=== PATIENT | male | born 1970 | race African-American/Black ===

== ENCOUNTER 2019-03-18 12:56 | Emergency (ER) | payer OTHER ==
[~2019-03-18] VITALS: Ht 182.9 cm; Wt 116.6 kg
--- NOTE | 2019-03-18 14:12 | NUR ---
US CALLED FOR TESTICULAR EXAM
[2019-03-18] MEDS ORDERED: HYDROCODONE/APAP 10MG-325MG TAB PO ONE (14:30)
[2019-03-18] MEDS ORDERED: SODIUM CHLORIDE 0.9% 1000ML 1,000 ML IV SCH (14:31)
[2019-03-18] MEDS ORDERED: ASPIRIN 81 MG CHEW TAB PO ONE (14:45)
[2019-03-18] MEDS ORDERED: LEVOFLOXACIN 750MG/D5W 150ML IV SCH (14:45)
[2019-03-18] MEDS ORDERED: ALBUTEROL SULF 0.083% NEB SOLN 3 ML NEB NEB SCH (14:45)
--- NOTE | 2019-03-18 15:31 | NUR ---
US AT BEDSIDE.
--- NOTE | 2019-03-18 16:13 | Diagnostic Imaging Report ---
Testicular ultrasound, with Doppler examination. History: Left testicular pain. Comparison: <None available>. Discussion: Evaluation of the scrotum was performed in the transverse and longitudinal planes. Color Doppler and spectral wave form analysis was performed bilaterally. The testes are normal in size and echogenicity bilaterally, measuring 4.5 x 3.2 x 3.1 cm on the right and 4.6 x 3.3 x 2.8 cm on the left. There is no evidence of a mass. There is increased vascularity to both testes. Moderate size bilateral septated hydroceles are present. No varicocele is seen. Right epididymis measures 1.9 x 0.9 x 1.2 cm and the left epididymis is enlarged measuring 3.7 x 1.3 x 1.6 cm. Increased vascular flow to both epididymides noted. No evidence to suggest testicular torsion. IMPRESSION: 1. Increased vascularity to both testes and epididymides. 2. Findings are compatible with epididymo-orchitis. 3. Bilateral hydroceles with septations. Signed by: Dr. Dillon Ames DO on 03/18/2019 4:09 PM
[2019-03-18 16:29] VITALS: BP 157/90
[2019-03-18] MEDS ORDERED: IPRATROPIUM BROMIDE 0.02% 2.5 ML NEB NEB SCH (18:00)
[2019-03-18] MEDS ORDERED: CEFEPIME HCL 2 GM/SOD CHL 0.9% 100 ML BAG IV SCH (22:00)
== END 2019-03-18 16:37 | disposition home or self-care (01) ==
LOC: FSED 12:56
DX: N50.812 Left testicular pain (principal); N45.1 Epididymitis; N45.2 Orchitis; N43.1 Infected hydrocele
CPT/HCPCS: 76870; 81003; 99283